=== PATIENT | female | born 1990 | race Native Hawaiian/Other Pacific Islander ===

== ENCOUNTER 2018-09-26 23:02 | Emergency (ER) | payer OTHER ==
[2018-09-26 23:05] VITALS: BMI 28.3
[2018-09-26 23:08] VITALS: RESP 18; TEMP 97.1
[2018-09-26] MEDS ORDERED: Sodium Chloride 0.9% 1,000 ML IV STA (23:26)
[2018-09-26] MEDS ORDERED: DiphenhydrAMINE 50 mg/ml Inj IVP STA (23:26)
--- NOTE | 2018-09-26 23:32 | ED PDOC ---
Arrival/HPI <Rafal Melendez - Last Filed: 09/27/18 01:28> - General Historian: Patient - History of Present Illness Narrative History of Present Illness (Text): 09/26/18 23:27 Adriana Torres is a 28 year old female, with no past medical history, recently gave 23 days prior and received an epidural at that time, who presents complaining of a headache, described as a left unilateral, throbbing sensation for past 3-4 days. Patient states headache is aggravated by light. Patient denies any fall/trauma, no neck stiffness. Patient states she was seen by her PMD, given a prescription for pain medication, but is still having pain and came in for further evaluation. Pt. has no numbness or tingling, no palpitation, no night sweat, no coughing or URI, no other medical or psychological complaints. Time/Duration: < week (3-4 days) Symptom Onset: Gradual Symptom Course: Unchanged Activities at Onset: Light Context: Home <Vignesh Lees - Last Filed: 09/27/18 03:11> - General Chief Complaint: Headache Time Seen by Provider: 09/26/18 23:24 Past Medical History - Provider Review Nursing Documentation Reviewed: Yes - Infectious Disease Hx of Infectious Diseases: None - Reproductive Menopause: No - Psychiatric Hx Psychophysiologic Disorder: No Hx Substance Use: No - Anesthesia Hx Anesthesia: No <Vignesh Lees - Last Filed: 09/27/18 03:11> Family/Social History - Physician Review Nursing Documentation Reviewed: Yes Family/Social History: Unknown Family HX Smoking Status: Never Smoked Hx Alcohol Use: No Hx Substance Use: No <Vignesh Lees - Last Filed: 09/27/18 03:11> Allergies/Home Meds <Rafal Melendez - Last Filed: 09/27/18 01:28> <Vignesh Lees - Last Filed: 09/27/18 03:11> Allergies/Adverse Reactions: Allergies No Known Allergies Allergy (Verified 09/26/18 23:08) Review of Systems - Physician Review All systems were reviewed & negative as marked: Yes - Review of Systems Constitutional: absent: Fatigue, Weight Change, Fevers Eyes: Photophobia. absent: Vision Changes ENT: absent: Hearing Changes Respiratory: absent: SOB, Cough Cardiovascular: absent: Chest Pain Gastrointestinal: absent: Abdominal Pain, Nausea, Vomiting Musculoskeletal: absent: Arthralgias, Back Pain Skin: absent: Rash, Pruritis, Skin Lesions Neurological: Headache. absent: Dizziness, Focal Weakness, Gait Changes, Speech Changes, Facial Droop Psychiatric: absent: Anxiety, Depression, Suicidal Ideation <Vignesh Lees - Last Filed: 09/27/18 03:11> Physical Exam Vital Signs Temp Pulse Resp BP Pulse Ox 09/26/18 23:05 97.1 F L 92 H 18 114/82 97 <Rafal Meelndez - Last Filed: 09/27/18 01:28> Vital Signs Reviewed: Yes Vital Signs Temp Pulse Resp BP Pulse Ox 09/26/18 23:05 97.1 F L 92 H 18 114/82 97 Temperature: Afebrile Blood Pressure: Normal Pulse: Regular Respiratory Rate: Normal Appearance: Positive for: Well-Appearing, Non-Toxic Pain Distress: Moderate Mental Status: Positive for: Alert and Oriented X 3 - Systems Exam Head: Present: Atraumatic, Normocephalic, Other (no temporal artery tenderness). No: Tenderness, Contusion, Swelling, Ecchymosis, Abrasion, Laceration Pupils: Present: PERRL Extroacular Muscles: Present: EOMI Conjunctiva: Present: Normal Ears: Present: Normal, NORMAL TM, Normal Canal. No: Erythema, TM Bulging, Fluid, TM Perf Mouth: Present: Moist Mucous Membranes Pharnyx: Present: Normal. No: ERYTHEMA, EXUDATE, TONSILS ENLARGED, Peritonsilar Swelling, Uvular Deviation, Muffled/Hoarse Voice, Strider, Soft Palate/Uvular Edema Nose (External): Present: Atraumatic Nose (Internal): Present: Normal Inspection Neck: Present: Normal Range of Motion, Trachea Midline. No: Meningeal Signs, MIDLINE TENDERNESS, Paraspinal Tenderness, Lymphadenopathy Respiratory/Chest: Present: Clear to Auscultation, Good Air Exchange. No: Respiratory Distress, Accessory Muscle Use, Wheezes, Retracting, Rhonchi Cardiovascular: Present: Regular Rate and Rhythm, Normal S1, S2. No: Murmurs Abdomen: No: Tenderness, Distention, Peritoneal Signs, Rebound, Guarding Back: Present: Normal Inspection. No: CVA Tenderness, Midline Tenderness, Paraspinal Tenderness Upper Extremity: Present: Normal Inspection. No: Cyanosis, Edema Lower Extremity: Present: Normal Inspection. No: Edema Neurological: Present: GCS=15, CN II-XII Intact, Speech Normal, Motor Func Grossly Intact, Normal Sensory Function, Normal Cerebellar Funct, Gait Normal, Memory Normal Skin: Present: Warm, Dry, Normal Color. No: Rashes Psychiatric: Present: Alert, Oriented x 3, Normal Insight, Normal Concentration <Vignesh Lees Q - Last Filed: 09/27/18 03:11> Medical Decision Making - Lab Interpretations Lab Results: 09/27/18 00:10 09/27/18 00:10 Lab Results 09/27/18 00:10: WBC 7.6, RBC 5.03, Hgb 12.2, Hct 38.1, MCV 75.7 L, MCH 24.3 L, MCHC 32.0, RDW 18.0 H, Plt Count 547 H, MPV 8.7, Gran % 56.4, Lymph % (Auto) 33.3, [place] % (Auto) 6.3 H, Eos % (Auto) 3.7, Baso % (Auto) 0.3, Gran # 4.30, Lymph # (Auto) 2.5, Sol[place] # (Auto) 0.5, Eos # (Auto) 0.3, Baso # (Auto) 0.02 09/27/18 00:10: Sodium 139, Potassium 4.4, Chloride 103, Carbon Dioxide 27, Anion Gap 13, BUN 19, Creatinine 0.7, Est GFR ( Amer) > 60, Est GFR (Non- Af Amer) > 60, Random Glucose 88, Calcium 8.8, Magnesium 1.8, Total Bilirubin 0.9, AST 52 H, ALT 28, Alkaline Phosphatase 87, Total Protein 8.0, Albumin 4.1, Globulin 3.8, Albumin/Globulin Ratio 1.1 - RAD Interpretation Radiology Orders: 09/26/18 23:26 HEAD W/O CONTRAST [CT] Stat - Medication Orders Current Medication Orders: Discontinued Medications Acetaminophen (Tylenol 325mg Tab) 650 mg PO STAT STA Stop: 09/26/18 23:27 Last Admin: 09/27/18 00:37 Dose: 650 mg MAR Pain/Vitals Document 09/27/18 00:37 BOO (Rec: 09/27/18 00:37 JRA [id number]) Presence of Pain Presence of Pain Yes Pain Scale Used Protocol: PSCALES Pain Scale Used Numeric Location Pain Location Body [place] Diphenhydramine HCl (Benadryl) 25 mg IVP STAT STA Stop: 09/26/18 23:27 Last Admin: 09/27/18 00:36 Dose: 25 mg IVP Administration Document 09/27/18 00:36 BOO (Rec: 09/27/18 00:36 [id number] Charges for Administration # of IVP Administrations 1 Sodium Chloride (Sodium Chloride 0.9%) 1,000 mls @ 999 mls/hr IV .Q1H1M STA Stop: 09/27/18 00:26 Last Admin: 09/27/18 00:28 Dose: 999 mls/hr eMAR Start Stop Document 09/27/18 00:28 Andria (Rec: 09/27/18 00:28 [id number]) Intravenous Solution Start Date 09/27/18 Start Time 00:28 Metoclopramide HCl (Reglan) 10 mg IVP STAT STA Stop: 09/26/18 23:27 Last Admin: 09/27/18 00:36 Dose: 10 mg IVP Administration Document 09/27/18 00:36 Andria (Rec: 09/27/18 00:36 [id number]) Charges for Administration # of IVP Administrations 1 <Rafal Melendez - Last Filed: 09/27/18 01:28> ED Course and Treatment: 09/26/18 23:27 Impression: 28 year old female complaining of unilateral, throbbing headache x3-4 days. Plan: --CT Head w/o contrast -- Labs -- IV fluids -- Reglan -- Benadryl -- Tylenol -- Reassess and disposition 09/27/18 03:10 -Beta HCG is negative -CT head show Normal unenhanced CT scan of the brain. -Labs show no acute findings -Pt. feels much better, headache resolved. -All labs and radiology results discussed with the patient, no focal neurological deficits, request to be discharged home. -Discharge home with motrin, stay hydrated, bed rest, follow up with your own pmd and neurologist within 2 days, return to the ER for any new or worsening signs or symptoms. - RAD Interpretation Narrative RAD Interpretations (Text): CT Head: Normal size of the ventricles and extra-axial spaces for the patient's age. Normal white matter tracts of the supratentorial brain. Normal basal ganglia and thalami. Normal brainstem. Normal cerebellum. There is no demonstrated extra-axial, intraparenchymal, or intraventricular hemorrhage. There are no findings of an acute ischemic infarction. Normal calvarium. There is no demonstrated fracture. Normal soft tissue structures. Normal visualized paranasal sinuses. IMPRESSION: Normal unenhanced CT scan of the brain. Electronically signed on Sep 27, 2018 3:02:41 AM EDT by: Susan George M.D., Certified by ABR, MSK, Neuroradiology [employer] Manager: Radiologist <Vignesh Lees - Last Filed: 09/27/18 03:11> - PA / DIE CASTER / Resident Statement RAIN has reviewed & agrees with the documentation as recorded. <Rafal Melendez - Last Filed: 09/27/18 01:28> - PA / DIE CASTER / Resident Statement / has reviewed & agrees with the documentation as recorded. - Scribe Statement The provider has reviewed the documentation as recorded by the Deborahibrachel Marrero Provider Scribe Attestation: All medical record entries made by the Scribe were at my direction and personally dictated by me. I have reviewed the chart and agree that the record accurately reflects my personal performance of the history, physical exam, medical decision making, and the department course for this patient. I have also personally directed, reviewed, and agree with the discharge instructions and disposition. <Vignesh Lees - Last Filed: 09/27/18 03:11> Disposition/Present on Arrival <Rafal Melendez - Last Filed: 09/27/18 01:28> - Present on Arrival Any Indicators Present on Arrival: No History of DVT/PE: No History of Uncontrolled Diabetes: No Urinary Catheter: No History of Decub. Ulcer: No History Surgical Site Infection Following: None - Disposition Have Diagnosis and Disposition been Completed?: Yes Disposition Time: 02:33 Patient Plan: Discharge <Vignesh Lees - Last Filed: 09/27/18 03:11> - Disposition Diagnosis: Headache Disposition: HOME/ ROUTINE Patient Problems: Current Active Problems Problem Status Onset Headache Acute Condition: IMPROVED Additional Instructions: Discharge home with motrin or tylenol, stay hydrated, bed rest, follow up with your own pmd and neurologist within 2 days, return to the ER for any new or worsening signs or symptoms. Prescriptions: Ibuprofen [Motrin] 600 mg PO QID PRN #30 tab PRN Reason: Other Referrals: Dallas Luo MD [Staff Provider] - Follow up with primary [facility] [place] [Outside] - Follow up with primary Forms: [facility] ([place]), WORK NOTE
[2018-09-27 00:25] LABS: BASO # 0.02 K/mm3 (0.0-2.0); BASO % 0.3 % (0.0-3.0); EOS # 0.3 (0.0-0.7); EOS % 3.7 % (1.5-5.0); GRAN # 4.3 (1.4-6.5); GRAN % 56.4 % (50.0-68.0); HEMOGLOBIN 12.2 g/dL (12.0-16.0); LYMPH # 2.5 (1.2-3.4); LYMPH % 33.3 % (22.0-35.0); MEAN CELL VOLUME 75.7 fl (80.0-105.0); MEAN CORPUSCULAR HEMOGLOBIN 24.3 pg (25.0-35.0); MEAN PLATELET VOLUME 8.7 fl (7.0-11.0); MONO # 0.5 (0.1-0.6); MONO % 6.3 % (1.0-6.0); RBC 5.03 10^6/uL (3.5-6.1); WHITE BLOOD COUNT 7.6 10^3/uL (4.5-11.0)
[2018-09-27 00:31] LABS: BLOOD UREA NITROGEN 19 mg/dL (7-21); CALCIUM 8.8 mg/dL (8.4-10.5); GFR NON-AFRICAN AMERICAN > 60
[2018-09-27 00:42] LABS: ALB/GLOB RATIO 1.1 (1.1-1.8); ALBUMIN 4.1 g/dL (3.0-4.8); ALT/SGPT 28 U/L (7-56); AST/SGOT 52 U/L (14-36)
[2018-09-27 03:39] VITALS: BP 136/78; PULSE 74; O2SAT 100
--- NOTE | 2018-09-27 07:49 | CT ---
Date of service: 09/27/2018 PROCEDURE: CT HEAD WITHOUT CONTRAST. HISTORY: unilateral headache x 3 days. COMPARISON: None available. TECHNIQUE: Axial computed tomography images were obtained through the head/brain without intravenous contrast. Radiation dose: Total exam DLP = 765.05 mGy-cm. This CT exam was performed using one or more of the following dose reduction techniques: Automated exposure control, adjustment of the mA and/or kV according to patient size, and/or use of iterative reconstruction technique. FINDINGS: HEMORRHAGE: No intracranial hemorrhage. BRAIN: No mass effect or edema. No atrophy or chronic microvascular ischemic changes. VENTRICLES: Unremarkable. No hydrocephalus. CALVARIUM: Unremarkable. PARANASAL SINUSES: Unremarkable as visualized. No significant inflammatory changes. MASTOID AIR CELLS: Unremarkable as visualized. No inflammatory changes. OTHER FINDINGS: The report concurs with the preliminary [facility] report IMPRESSION: No acute findings
== END 2018-09-27 03:20 | disposition home or self-care (01) ==
LOC: ED 23:02
DX: R51 Headache (principal)
CPT/HCPCS: 70450; 80053; 83735; 84702; 85025; 96361; 96374; 96375; 99285; J1200; J2765; J7030